=== PATIENT | female | born 1955 | race Caucasian/White ===

== ENCOUNTER 2020-02-12 16:25 | Outpatient (CLI) | payer OTHER, SELFPAY ==
--- NOTE | ~2020-02-12 | US_ITS ---
EXAMINATION: US renal BI DATE: 02/12/2020 17:07 INDICATION: Recurrent urinary tract infection. TECHNIQUE: Multiple ultrasound grayscale images of the kidneys were obtained. COMPARISON: CT abdomen and pelvis 01/28/2019 FINDINGS: The right kidney measures 9.2 x 4.4 x 4.1 cm. The left kidney measures 9.7 x 3.7 x 4.9 cm. The kidney s demonstrate normal parenchymal echogenicity. There is no hydronephrosis. The bladder is normal. IMPRESSION: 1. Normal kidneys. No hydronephrosis. Reviewed, dictated and finalized at location A.
== END 2020-02-12 16:26 | disposition home or self-care (01) ==
LOC: ANHIMG 16:30
PROVIDERS: PCP Nurse Practitioner; Visit Provider Nurse Practitioner
DX: R39.9 Unspecified symptoms and signs involving the genitourinary system (principal)
CPT/HCPCS: 76775

== ENCOUNTER 2021-04-01 17:57 | Emergency (ER) | payer MEDICARE, MEDICAID, SELFPAY ==
[2021-04-01 18:19] VITALS: BP 129/85; RESP 16; TEMP 37; O2SAT 99
--- NOTE | 2021-04-01 18:24 | ED.EYEPROB ---
HPI - Eye Problem General Chief complaint: Eye Problems Stated complaint: eye redness Time Seen by Provider: 04/01/21 18:31 Source: patient and RN notes reviewed Mode of arrival: ambulatory Limitations: no limitations History of Present Illness HPI Narrative: 66-year-old female with history of hypertension presents with concern for bilateral itchy, watery eyes. Reports symptoms started with an itchy rash around her eyelids and ears 1 week ago that she just finished steroiReports she started having eye irritation. She reports she has been taking Benadryl and Claritin. She denies cough, shortness of breath, fever, vision changes, purulent drainage, eye pain. MD chief complaint: eye redness and foreign body Related Data Home Medications Medication Instructions Recorded Confirmed amlodipine 04/01/21 baclofen mg 04/01/21 buspirone mg 04/01/21 desvenlafaxine succinate mg PO 04/01/21 desvenlafaxine succinate mg PO 04/01/21 diazepam 04/01/21 fluticasone propionate INTRANASAL 04/01/21 hydrochlorothiazide 04/01/21 omeprazole 04/01/21 propranolol 04/01/21 quetiapine 04/01/21 sucralfate [Carafate] 04/01/21 Allergies Allergy/AdvReac Type Severity Reaction Status Date / Time sertraline Allergy Mild nausea Verified 03/13/19 19:52 levofloxacin Allergy Unknown Other Verified 04/01/21 18:20 Penicillins Allergy Unknown Hives Verified 04/01/21 18:20 1 METAL Allergy Unknown Rash Uncoded 04/01/21 18:20 Wasp Allergy Unknown Swelling Uncoded 04/01/21 18:20 Review of Systems Review of Systems: CONSTITUTIONAL: Denies malaise, chills, sweats, or fever. EYES: Denies visual changes. Reports bilateral redness, irritation, watery discharge. ENT: Reports rhinorrhea. Denies congestion, sinus pain, otalgia or sore throat. CARDIOVASCULAR: Denies chest pain, palpitations, or edema. RESPIRATORY: Denies cough or dyspnea. SKIN: Reports resolving rash around the eyes and ears All systems reviewed & are unremarkable except as noted in HPI and below PMFSH Family History Family History (Updated 05/06/16 @ 12:54 by DOCTOR UNKNOWN) Sibling Family history of mental disorder Hypertension Father Depression Hypertension Family history of emphysema Mother Hypertension Grandparent Family history of gastrointestinal disorder Other Diabetes mellitus Family history of alcoholism Family history of arthritis Family history of lung disease Social History Social History Smoking status: Smoker, status unknown Alcohol intake: never Comments At time of signature, agree with nursing past medical, surgical, social and family history. There is no relevant family history pertinent to the presenting complaint Exam Narrative: GENERAL: Well-appearing, well-nourished, and in no acute distress. HEAD: Normocephalic, atraumatic. EYES: PERRLA, conjunctivae clear, and EOMI. No nystagmus. Bilateral sclera mildly injected with watery drainage noted. No sign of foreign body, injury, rash noted. ENT: Nares clear, turbinates pink, no rhinorrhea or epistaxis. Mucous membranes moist. TM pearly leyva with sharp light reflex bilaterally; no tragal tenderness. Oropharynx without erythema or lesions. Tonsils not enlarged and without exudate. NECK: Supple. CHEST: No respiratory distress. Speaks in full sentences. HEART: Regular rate and rhythm. SKIN: Warm, dry, no visible rash. NEURO: Alert and oriented x3. PSYCH: Normal mood and affect Course Course Emergency Course: Patient is aware of diagnosis, understands and agrees to treatment plan. Anticipatory guidance given. Patient agrees to follow-up as directed and is aware of reasons to seek care at the emergency department. Portions of this record may have been created with voice recognition software Vital Signs Vital signs: Vital Signs Temperature 98.6 F 04/01/21 18:19 Respiratory Rate 16 04/01/21 18:19 Blood Pressure 129/85 04/01/21 18:19 Pulse Oximetry 99 04/01/21
== END 2021-04-01 18:48 | disposition home or self-care (01) ==
PROVIDERS: Emergency Provider Nurse Practitioner
DX: H10.13 Acute atopic conjunctivitis, bilateral (principal); I10 Essential (primary) hypertension
CPT/HCPCS: 99213; G0463

== ENCOUNTER 2022-11-22 11:56 | Inpatient (IN) | payer MEDICARE, MEDICAID, SELFPAY ==
[2022-11-22] VITALS (24 sets, daily range): BP systolic 116–152; BP diastolic 70–98; PULSE 75–119; RESP 15–26; TEMP 35.9–36.3; O2SAT 96–100; BMI 24.5
--- NOTE | ~2022-11-22 | CT_ITS ---
EXAMINATION: CT brain wo con DATE: 11/22/2022 14:33 INDICATION: Stroke. Headache. TECHNIQUE: Computed tomography (CT) of the head was performed without intravenous contrast. The mA wa s adjusted according to patient size. Iterative reconstruction technique was employed. The dose-lengt h product was 908.00 mGy-cm. COMPARISON: Head CT 01/28/2019 FINDINGS: There are scattered areas of low attenuation in the cerebral white matter. There is no intr acranial hemorrhage, acute infarction, or abnormal intracranial mass lesion. The ventricles are karlene l in size. There is mild mucosal thickening in the paranasal sinuses. The mastoid air cells are karlene l. The orbits are normal. IMPRESSION: 1. Stable mild nonspecific cerebral white matter disease, which likely represents chronic small vesse l ischemic disease. Reviewed, dictated and finalized at location A. IMPRESSION: 1. Stable mild nonspecific cerebral white matter disease, which likely represen ts chronic small vessel ischemic disease.
--- NOTE | ~2022-11-22 | XR_ITS ---
EXAMINATION: XR abdomen obstructive series DATE: 11/23/2022 06:18 INDICATION: Adynamic ileus. TECHNIQUE: Upright and supine views of the abdomen on 4 radiographs were obtained. COMPARISON: CT abdomen and pelvis 11/22/2022 FINDINGS: There are no dilated loops of small or large bowel. There is a small volume of stool in the colon. No free intraperitoneal gas. IMPRESSION: 1. Nonobstructive bowel gas pattern. Reviewed, dictated and finalized at location A.
--- NOTE | ~2022-11-22 | CT_ITS ---
EXAMINATION: CT abdomen pelvis wo con DATE: 11/22/2022 19:57 INDICATION: abdominal pain TECHNIQUE: Computed tomography (CT) of the abdomen and pelvis was performed without intravenous contr ast. Automated exposure control and iterative reconstruction technique were employed. The dose-length product was 321.45 mGy-cm. COMPARISON: None. FINDINGS: Lower thorax: Coronary artery calcifications. Small pericardial effusion. Moderate hiatal hernia. Liver: Normal. Biliary/Gallbladder: Gallbladder is normal. No bile duct dilation. Pancreas: No mass or duct dilation. Spleen: Normal. Adrenals:No mass. Kidneys: Punctate nonobstructing right midpole calcification. No suspicious mass, obstructing calcifi cation, or hydronephrosis. GI tract: Several loops of mildly dilated large and small bowel in the left upper abdomen, no transit ion point. Predominantly fluid-filled large bowel. Normal appendix. Mesentery/Peritoneum: No ascites, mass, or free air. Retroperitoneum: No mass. Atherosclerotic abdominal aortic and/or arterial calcifications. Pelvis: Pelvic organs are within normal limits. Soft Tissues: Soft tissues and body wall unremarkable. Bones: No acute osseous finding. IMPRESSION: Small pericardial effusion. Several loops of dilated large and small bowel in the left abdomen, may r epresent ileus or early/partial obstruction. Fluid-filled colon as can be seen with diarrheal illness . Reviewed, dictated and finalized at location K. IMPRESSION: Small pericardial effusion. Several loops of dilated large and small bowel in t he left abdomen, may represent ileus or early/partial obstruction. Fluid-filled colon as can be seen with diarrheal illness.
--- NOTE | 2022-11-22 12:38 | ED.GENADULT ---
HPI - General Adult General Chief complaint: Unspecified Stated complaint: headache Time Seen by Provider: 11/22/22 12:38 History of Present Illness HPI narrative: 67 yo female with a pmh of htn on (4 antihypertensives) and anxiety presents with multiple complaints. Pt states she has been sick for the past couple days. Symptoms include fatigue, anxiety, N/V and dull LEGER. This am, symptoms persisted and she also has trouble speaking . THis may be a slurring but pt states it feels like her mouth doesnt want to work. Objectively, I do not detect any slurring. No focal symptoms other than above. Related Data Home Medications Medication Instructions Recorded Confirmed amlodipine 5 mg tablet 5 mg PO DAILY 04/01/21 11/22/22 baclofen 20 mg tablet 30 mg PO TID 04/01/21 11/22/22 buspirone 10 mg tablet 20 mg PO TID 04/01/21 11/22/22 fluticasone propionate 50 1 spray intranasal DAILY PRN 04/01/21 11/22/22 mcg/actuation nasal Congestion spray,suspension hydrochlorothiazide 12.5 mg tablet 12.5 mg PO DAILY 04/01/21 11/22/22 propranolol 20 mg tablet 20 mg PO BID 04/01/21 11/22/22 cetirizine 10 mg tablet 10 mg PO DAILY 11/22/22 11/22/22 desvenlafaxine succinate 50 mg 50 mg PO DAILY 11/22/22 11/22/22 tablet,extended release 24 hr gabapentin 100 mg capsule 100 mg PO HS 11/22/22 11/22/22 hydroxyzine HCl 25 mg tablet 25 mg PO BID PRN Itching 11/22/22 11/22/22 melatonin 10 mg tablet 10 mg PO HS 11/22/22 11/22/22 quetiapine 300 mg tablet,extended 300 mg PO QPM 11/22/22 11/22/22 release 24 hr Allergies Allergy/AdvReac Type Severity Reaction Status Date / Time sertraline Allergy Mild nausea Verified 03/13/19 19:52 levofloxacin Allergy Unknown Other Verified 04/01/21 18:20 Penicillins Allergy Unknown Hives Verified 04/01/21 18:20 1 METAL Allergy Unknown Rash Uncoded 04/01/21 18:20 Wasp Allergy Unknown Swelling Uncoded 04/01/21 18:20 Review of Systems Review of Systems: CONSTITUTIONAL: Denies fever, chills, or sweats. EYES: Denies visual changes, redness, or discharge. ENT: Denies rhinorrhea, congestion, sore throat, or otalgia. CARDIOVASCULAR: Denies chest pain, palpitations, or edema. RESPIRATORY: Denies cough or dyspnea. GASTROINTESTINAL: Denies abdominal pain, nausea, vomiting, or diarrhea. GENITOURINARY: Denies dysuria or hematuria. SKIN: Denies rash or itching. MUSCULOSKELETAL: Denies back pain, joint pain, or myalgia. NEUROLOGIC: Denies headache, numbness, or weakness. PSYCHIATRIC: Denies anxiety or depression. [facility] Past Medical History Medical History (Updated 11/22/22 @ 21:25 by Perla Rogers PA-C) Anxiety Chronic back pain Degenerative disc disease Gastric ulcer Hypertension Seizure (07/2021) Tobacco dependence Surgical History Surgical History (Updated 11/22/22 @ 21:20 by Perla Rogers PA-C) History of lumbar surgery History of right inguinal hernia repair Family History Family History Sibling Family history of mental disorder Hypertension Father Depression Hypertension Family history of emphysema Mother Hypertension Grandparent Family history of gastrointestinal disorder Other Diabetes mellitus Family history of alcoholism Family history of arthritis Family history of lung disease Social History Social History (Updated 11/22/22 @ 21:21 by Perla Rogers PA-C) Social History: Surrogate medical decision maker: Louise Méndez, daughter. Code status: Full code. Smoking packs per day: 0.25 Smoking cigarettes per day: 5.0 Years smoked: 54 Smoking pack-years: 13.50 Smoking status: Current every day smoker Tobacco type: cigarettes Additional smoking assessment comments: Smoked up to 2 packs of cigarettes per day. Alcohol intake: former Alcohol use details: History of alcohol abuse, no alcohol since before her 61th birthday. Substance use: current Substance use type: marijuana Other substance usa
[2022-11-22 12:55] LABS: Basophils Percent Auto 0.3 % (0.2-1.2); Eosinophils Absolute Auto 0.1 K/mm3 (0-0.3); Eosinophils Percent Auto 0.5 % (0-4.4); Hematocrit 41.3 % (37.0-47.0); Hemoglobin 14.4 g/dL (12.0-15.0); Immature Granulocyte Absolute 0.02 K/mm3 (0.00-0.031); Immature Granulocyte Percent A 0.2 % (0-0.5); Mean Corpuscular HGB Conc 34.9 g/dl (32-36); Mean Corpuscular Hemoglobin 30.8 pg (26-34); Mean Corpuscular Volume 88.4 fl (80-100); Monocytes Absolute Auto 0.8 K/mm3 (0.1-0.6); Neutrophils Absolute Auto 6.1 K/mm3 (1.3-6.7); Platelet Count Result 310 k/mm3 (150-375); Red Blood Count 4.67 M/mm3 (4.2-5.4); Red Cell Distribution Width 12.6 % (11.5-14.5); White Blood Count 9.1 K/mm3 (4.5-10.0)
[2022-11-22 12:58] LABS: Appearance Urine Clear (Clear); Bacteria Urine None Seen /hpf; Bilirubin Urine Negative (Negative); Blood Urine Negative (Negative); Color Urine Yellow (Yellow); Glucose Urine UA Negative (Negative); Ketones Urine 1+ mg/dL (Negative); Leukocyte Esterase Ur 2+ LEU/UL (Negative); Nitrate Urine Negative (Negative); Protein Urine 1+ mg/dL (Negative); Specific Grav Ur 1.014 (1.001-1.035); Squamous Epithelial Cell Urine None seen /hpf (Few); pH Urine 7.5 (5.0-9.0)
[2022-11-22 13:01] LABS: Add Urine Microscopic? YES
[2022-11-22 13:08] LABS: Alanine Aminotransferase 19 U/L (6-35); Albumin Level 4.9 g/dL (3.5-5.1); Alkaline Phosphatase 106 U/L (38-126); Anion Gap 10 mmol/L (8-16); Aspartate Amino Transferase 27 U/L (14-36); Bilirubin,Total 0.6 mg/dL (0.2-1.3); Blood Urea Nitrogen 8 mg/dL (7-17); Calcium 9.1 mg/dL (8.4-10.2); Carbon Dioxide 29 mmol/L (22-30); Chloride 89 mmol/L (98-107); Estimated CRCL calculation 63 ml/min; Estimated Glomerular Filt Rate > 60; Glucose 110 mg/dL (65-110); Lipase 81 U/L (23-300); Potassium 2.9 mmol/L (3.4-5.0); Sodium 128 mmol/L (137-145)
[2022-11-22] MEDS: POTASSIUM CHLORIDE 20 MEQ PACKET (FOR LIQUID) 40 MEQ PO (14:51)
[2022-11-22] MEDS: MAGNESIUM SULF 1 GM/D5W 100 ML 1 GM/100 ML BAG IVPB (14:52)
[2022-11-22] MEDS: POTASSIUM CHLORIDE INJ 40 MEQ in SODIUM CHLORIDE 0.9% IV 500 ML 130 MEQ IVPB (14:52)
[2022-11-22] MEDS: LORazepam INJ (*CRX) 2 MG/ML VIAL 0.5 MG IV PUSH (14:57)
[2022-11-22 15:48] LABS: SARS-CoV-2 RNA PCR Negative (Negative)
[2022-11-22] MEDS: SODIUM CHLORIDE 0.9% IV 500 ML 999 ML IV CONT (17:17)
--- NOTE | 2022-11-22 17:30 | PM.IMHP ---
H&P: HPI History of Present Illness Date/Time: 11/22/22 17:30 Chief Complaint: Headache and slurred speech. Narrative: This is a 67-year-old female smoker with hypertension, anxiety, and chronic back pain who presented to the emergency department via private vehicle from home for evaluation of headache and slurred speech. The patient provides the following history. She has not been feeling well since Monday morning when she woke up ?in a fog? and just not feeling like herself. She endorses a generalized headache, sinus congestion, nonproductive cough, nausea, diarrhea, and generalized abdominal discomfort and bloating. She has not had much to eat or drink since her symptoms started and she is feeling increasingly weak and a bit lightheaded and dizzy. At home she has been taking acetaminophen as needed and nothing else. This morning her daughter was concerned that the patient was increasingly weak today and she also noticed that the patient had slurred speech. She denies vertigo, visual changes, difficulty swallowing, facial droop, focal weakness, and paresthesias. The patient herself reported that it felt like her mouth was not working appropriately but her mouth is extremely dry and her speech seemed to improve when she drink. She is on quetiapine, baclofen, and gabapentin at home but denies that she could have taken more than prescribed. She has a history of alcohol abuse but has not drank for over 6 years. She has not had any recent falls or head trauma. No chest pain, pleuritic pain, palpitations, or sensations of racing heart. In the ED: Vital signs were stable. CBC was unremarkable. Her sodium, potassium, and chloride were all low at 128, 2.9, and 89 respectively. BUN and creatinine were normal as well as her LFTs and lipase. Head CT showed no acute findings. CT of the abdomen pelvis showed a small pericardial effusion, several loops of dilated large and small bowel in the left abdomen which may represent ileus or early/partial obstruction and a fluid-filled colon. She was hydrated with normal saline and her potassium was replaced. She is being admitted in this setting for closer monitoring and evaluation. Review of Systems Review of Systems: Twelve systems were reviewed and are negative except for as per HPI. [facility] Past Medical History Medical History (Updated 11/22/22 @ 21:25 by Perla Rogers PA-C) Anxiety Chronic back pain Degenerative disc disease Gastric ulcer Hypertension Seizure (07/2021) Tobacco dependence Surgical History Surgical History (Updated 11/22/22 @ 21:20 by Perla Rogers PA-C) History of lumbar surgery History of right inguinal hernia repair Family History Family History Sibling Family history of mental disorder Hypertension Father Depression Hypertension Family history of emphysema Mother Hypertension Grandparent Family history of gastrointestinal disorder Other Diabetes mellitus Family history of alcoholism Family history of arthritis Family history of lung disease Social History Social History (Updated 11/22/22 @ 21:21 by Perla Rogers PA-C) Social History: Surrogate medical decision maker: Louise Méndez, daughter. Code status: Full code. Smoking packs per day: 0.25 Smoking cigarettes per day: 5.0 Years smoked: 54 Smoking pack-years: 13.50 Smoking status: Current every day smoker Tobacco type: cigarettes Additional smoking assessment comments: Smoked up to 2 packs of cigarettes per day. Alcohol intake: former Alcohol use details: History of alcohol abuse, no alcohol since before her 61th birthday. Substance use: current Substance use type: marijuana Other substance usage details: edibles Last use: 11/16/2022 Lack of Transportation: YES Lack of Food: Never True Current Housing: I Have Housing Concerned About Future Housing: No Difficulty Paying Gas/Electric Bills: No D
--- NOTE | 2022-11-22 17:52 | ADMGEN ---
This patient, Lola Gandhi, was admitted to [facility] Surg Room 314-01. Patient/family oriented to hospital policies and general routines including ID bracelet, bed and alarms, visiting hours, pain management, procedures, bathroom and other care routines, personal items, smoking policy, room service/diet, and visiting hours. Information on how to activate the Rapid Response Team has been discussed. Patient/Family are encouraged to report perceived risks to care and to ask questions if they do not understand what they are told or what they should do.
[2022-11-22] MEDS: ACETAMINOPHEN 325 MG TABLET 650 MG PO (19:41)
[2022-11-22 21:52] LABS: Anion Gap 5 mmol/L (8-16); Blood Urea Nitrogen 6 mg/dL (7-17); Calcium 8.3 mg/dL (8.4-10.2); Carbon Dioxide 27 mmol/L (22-30); Chloride 95 mmol/L (98-107); Estimated CRCL calculation 73 ml/min; Estimated Glomerular Filt Rate > 60; Glucose 100 mg/dL (65-110); Potassium 4.1 mmol/L (3.4-5.0); Sodium 127 mmol/L (137-145)
[2022-11-22] MEDS: SODIUM CHLORIDE 0.9% IV 1,000 ML 75 ML IV CONT (22:14)
[2022-11-22] MEDS: GABAPENTIN 100 MG CAPSULE PO (23:18)
[2022-11-22] MEDS: PROPRANOLOL HCL 20 MG TABLET PO (23:18)
[2022-11-22] MEDS: busPIRone HCL 10 MG TABLET 20 MG PO (23:19)
[2022-11-22] MEDS: QUEtiapine FUMARATE XR 50 MG TAB.ER.24H 100 MG PO (23:19)
[2022-11-22] MEDS: MELATONIN 5 MG TABLET 10 MG PO (23:19)
[2022-11-22] MEDS: QUEtiapine FUMARATE XR 200 MG TAB.ER.24H BY MOUTH (23:19)
[2022-11-23 05:30] VITALS: BP 123/73; PULSE 69; RESP 18; TEMP 36; O2SAT 98
[2022-11-23 06:31] LABS: Hematocrit 43.6 % (37.0-47.0); Hemoglobin 14.6 g/dL (12.0-15.0); Mean Corpuscular HGB Conc 33.5 g/dl (32-36); Mean Corpuscular Hemoglobin 30.5 pg (26-34); Mean Platelet Volume 8.9 fl (7.4-10.4); Platelet Count Result 292 k/mm3 (150-375); Red Blood Count 4.79 M/mm3 (4.2-5.4); Red Cell Distribution Width 12.8 % (11.5-14.5); White Blood Count 8.6 K/mm3 (4.5-10.0)
[2022-11-23 06:37] LABS: Alanine Aminotransferase 17 U/L (6-35); Albumin Level 4.8 g/dL (3.5-5.1); Alkaline Phosphatase 97 U/L (38-126); Anion Gap 8 mmol/L (8-16); Aspartate Amino Transferase 32 U/L (14-36); Bilirubin,Total 0.8 mg/dL (0.2-1.3); Blood Urea Nitrogen 4 mg/dL (7-17); Calcium 8.9 mg/dL (8.4-10.2); Carbon Dioxide 25 mmol/L (22-30); Chloride 98 mmol/L (98-107); Estimated CRCL calculation 73 ml/min; Estimated Glomerular Filt Rate > 60; Glucose 104 mg/dL (65-110); Magnesium 2.1 mg/dL (1.6-2.3); Potassium 3.9 mmol/L (3.4-5.0); Sodium 131 mmol/L (137-145)
[2022-11-23] MEDS: ACETAMINOPHEN 325 MG TABLET 650 MG PO (06:48)
[2022-11-23] MEDS: ENOXAPARIN 40 MG/0.4 ML SYRINGE SUB-Q (07:54)
[2022-11-23] MEDS: busPIRone HCL 10 MG TABLET 20 MG PO ×3 (07:55→18:16)
[2022-11-23] MEDS: amLODIPine BESYLATE 5 MG TABLET PO (07:55)
[2022-11-23] MEDS: DESVENLAFAXINE SUCCINATE 50 MG TAB.ER.24H PO (07:55)
[2022-11-23] MEDS: LORATADINE 10 MG TABLET PO (07:56)
[2022-11-23 07:59] VITALS: PULSE 74
[2022-11-23] MEDS: PROPRANOLOL HCL 20 MG TABLET PO ×2 (07:59→20:30)
[2022-11-23 14:40] VITALS: BP 146/69; PULSE 82; RESP 16; TEMP 36.3; O2SAT 99
--- NOTE | 2022-11-23 14:59 | PM.IMPN ---
Progress Note: A&P Assessment and Plan (1) Slurred speech: Code(s): R47.81 - Slurred speech Status: Acute Assessment and Plan: The patient's daughter reports that she has had slurred speech since this morning, not necessarily evident on my exam. No focal findings were noted on neurologic exam and brain CT showed no acute findings. More over she looks very dehydrated her mouth is quite dry which may very well be the reason why she was slurring her speech. I do not think she has had a stroke but she will be monitor on telemetry overnight we will continue neurologic checks. Depending on her exam tomorrow, brain MRI may be prudent. 11/23/2022 interval history: 67-year-old female was brought to the emergency department with slurred speech however upon arrival patient is patient improved and currently patient has a fluent speech and patient states, is now for baseline, upon arrival patient appeared to be dehydrated and her buccal mucosa were dry, most likely dry mouth last patient difficulty with the speech, patient is being gently hydrated and her clinical symptoms are improving, Patient also complaints of abdominal pain CT scan of abdomen concerning for possible ileus, repeat x-ray of the abdomen today does not show any obstructive will advance patient's diet to full liquid and monitor. Will have a PT OT evaluate the patient and further recommendation to follow. (2) Gastroenteritis: Code(s): K52.9 - Noninfective gastroenteritis and colitis, unspecified Status: Acute Assessment and Plan: She most likely has a viral gastroenteritis. Continue supportive care including IV fluid rehydration and antiemetics as needed. (3) Ileus: Code(s): K56.7 - Ileus, unspecified Status: Acute Assessment and Plan: CT of the abdomen and pelvis shows several loops of dilated large and small bowel, ileus or or early/partial obstruction. There is also fluid-filled colon which is likely due to a gastroenteritis as detailed above. She still has some nausea but has not had any episodes of emesis. Trial clear liquids and monitor abdominal exam. (4) Electrolyte abnormality: Code(s): E87.8 - Other disorders of electrolyte and fluid balance, not elsewhere classified Status: Acute Assessment and Plan: Sodium, potassium, and chloride are all low. Continue normal saline overnight. Potassium was replaced and will be monitored. (5) Dehydration: Code(s): E86.0 - Dehydration Status: Acute Assessment and Plan: She has had poor oral intake the last several days with diarrhea. Continue IV fluid rehydration. (6) Hypertension: Code(s): I10 - Essential (primary) hypertension Status: Acute Assessment and Plan: Blood pressures were reviewed and they are stable. Her antihypertensives will be reviewed and resumed as appropriate. (7) Anxiety: Code(s): F41.9 - Anxiety disorder, unspecified Status: Acute Assessment and Plan: Continue desvenlafaxine and buspirone. (8) Chronic back pain: Code(s): M54.9 - Dorsalgia, unspecified; G89.29 - Other chronic pain Status: Acute Assessment and Plan: Continue baclofen and gabapentin as needed. (9) Tobacco dependence: Code(s): F17.200 - Nicotine dependence, unspecified, uncomplicated Status: Acute Assessment and Plan: Smoking cessation is encouraged. She declines the need for a nicotine patch. Subjective Date/time seen: 11/23/22 14:59 Headache and slurred speech. HPI-Narrative: This is a 67-year-old female smoker with hypertension, anxiety, and chronic back pain who presented to the emergency department via private vehicle from home for evaluation of headache and slurred speech. The patient provides the following history. She has not been feeling well since Monday morning when she woke up ?in a fog? and just not feeling like herself. She endors
--- NOTE | 2022-11-23 15:26 | PCCCNOTE ---
On 11/23/22, the student, [Caitlin Mohamud ], provided care and completed [facility] documentation on this patient. I have reviewed the student's documentation and agree with the findings.
[2022-11-23] MEDS: QUEtiapine FUMARATE XR 50 MG TAB.ER.24H 100 MG PO (18:17)
[2022-11-23] MEDS: QUEtiapine FUMARATE XR 200 MG TAB.ER.24H BY MOUTH (18:18)
[2022-11-23] MEDS: GABAPENTIN 100 MG CAPSULE PO (20:29)
[2022-11-23 20:30] VITALS: PULSE 88
[2022-11-23] MEDS: MELATONIN 5 MG TABLET 10 MG PO (20:30)
[2022-11-23 22:00] VITALS: BP 121/74; PULSE 85; RESP 14; TEMP 36.1; O2SAT 100
[2022-11-24] MEDS: ACETAMINOPHEN 325 MG TABLET 650 MG PO (02:23)
[2022-11-24 05:43] VITALS: BP 169/83; PULSE 86; RESP 14; TEMP 36.4; O2SAT 99
[2022-11-24 08:00] VITALS: PULSE 87; RESP 14; O2SAT 99
[2022-11-24] MEDS: ENOXAPARIN 40 MG/0.4 ML SYRINGE SUB-Q (08:31)
[2022-11-24] MEDS: FLUTICASONE PROPIONATE 0.05% NA SPR 16 GM BTL (*BKC) 1 SPRAY NASAL (08:31)
[2022-11-24 08:32] VITALS: PULSE 87
[2022-11-24] MEDS: PROPRANOLOL HCL 20 MG TABLET PO ×2 (08:32→21:18)
[2022-11-24] MEDS: busPIRone HCL 10 MG TABLET 20 MG PO ×3 (08:33→17:27)
[2022-11-24] MEDS: LORATADINE 10 MG TABLET PO (08:33)
[2022-11-24] MEDS: amLODIPine BESYLATE 5 MG TABLET PO (08:33)
[2022-11-24] MEDS: DESVENLAFAXINE SUCCINATE 50 MG TAB.ER.24H PO (08:34)
[2022-11-24] MEDS: hydrOXYzine HCL 25 MG TABLET PO (08:41)
[2022-11-24] MEDS: SODIUM CHLORIDE 0.9% IV 1,000 ML 75 ML IV CONT (08:42)
[2022-11-24] MEDS: MAGNES & ALUM HYD/SIMETH/DIPHENHYD/LIDOCAINE 119 ML MOUTHWASH BY MOUTH ×3 (12:53→21:17)
--- NOTE | 2022-11-24 13:58 | PCCCNOTE ---
On 11/24/22, the student, [Caitlin Mohamud ], provided care and [facility]. I have reviewed the student's documentation and agree with the findings.
[2022-11-24 14:00] VITALS: BP 154/70; PULSE 80; RESP 16; TEMP 36.3; O2SAT 99
--- NOTE | 2022-11-24 14:03 | PM.IMPN ---
Progress Note: A&P Assessment and Plan (1) Slurred speech: Code(s): R47.81 - Slurred speech Status: Acute Assessment and Plan: The patient's daughter reports that she has had slurred speech since this morning, not necessarily evident on my exam. No focal findings were noted on neurologic exam and brain CT showed no acute findings. More over she looks very dehydrated her mouth is quite dry which may very well be the reason why she was slurring her speech. I do not think she has had a stroke but she will be monitor on telemetry overnight we will continue neurologic checks. Depending on her exam tomorrow, brain MRI may be prudent. 11/24/2022 interval history: 67-year-old female was brought to the emergency department with slurred speech however upon arrival patient had improved and currently patient has a fluent speech and patient states, is now her baseline, upon arrival patient appeared to be dehydrated and her buccal mucosa were dry, most likely dry mouth, patient had difficulty with the speech, patient is being gently hydrated, also her psychiatric medication will give patient dry mouth, and her clinical symptoms are improving, Patient also complaints of abdominal pain CT scan of abdomen concerning for possible ileus, repeat x-ray of the abdomen does not show any obstructive will advance patient's diet to full liquid and monitor. Will have a PT OT evaluate the patient and further recommendation to follow. (2) Gastroenteritis: Code(s): K52.9 - Noninfective gastroenteritis and colitis, unspecified Status: Acute Assessment and Plan: She most likely has a viral gastroenteritis. Continue supportive care including IV fluid rehydration and antiemetics as needed. (3) Ileus: Code(s): K56.7 - Ileus, unspecified Status: Acute Assessment and Plan: CT of the abdomen and pelvis shows several loops of dilated large and small bowel, ileus or or early/partial obstruction. There is also fluid-filled colon which is likely due to a gastroenteritis as detailed above. She still has some nausea but has not had any episodes of emesis. Trial clear liquids and monitor abdominal exam. (4) Electrolyte abnormality: Code(s): E87.8 - Other disorders of electrolyte and fluid balance, not elsewhere classified Status: Acute Assessment and Plan: Sodium, potassium, and chloride are all low. Continue normal saline overnight. Potassium was replaced and will be monitored. (5) Dehydration: Code(s): E86.0 - Dehydration Status: Acute Assessment and Plan: She has had poor oral intake the last several days with diarrhea. Continue IV fluid rehydration. (6) Hypertension: Code(s): I10 - Essential (primary) hypertension Status: Acute Assessment and Plan: Blood pressures were reviewed and they are stable. Her antihypertensives will be reviewed and resumed as appropriate. (7) Anxiety: Code(s): F41.9 - Anxiety disorder, unspecified Status: Acute Assessment and Plan: Continue desvenlafaxine and buspirone. (8) Chronic back pain: Code(s): M54.9 - Dorsalgia, unspecified; G89.29 - Other chronic pain Status: Acute Assessment and Plan: Continue baclofen and gabapentin as needed. (9) Tobacco dependence: Code(s): F17.200 - Nicotine dependence, unspecified, uncomplicated Status: Acute Assessment and Plan: Smoking cessation is encouraged. She declines the need for a nicotine patch. Subjective Date/time seen: 11/24/22 14:03 The patient's daughter reports that she has had slurred speech since this morning, not necessarily evident on my exam. No focal findings were noted on neurologic exam and brain CT showed no acute findings. More over she looks very dehydrated her mouth is quite dry which may very well be the reason why she was slurring her speech. I do not think she has had a stroke
[2022-11-24] MEDS: chlordiazePOXIDE (*CRX) 25 MG CAPSULE PO ×2 (15:56→21:15)
[2022-11-24] MEDS: ONDANSETRON INJ 4 MG/2 ML VIAL IV PUSH (16:00)
[2022-11-24] MEDS: GABAPENTIN 100 MG CAPSULE PO (21:15)
[2022-11-24] MEDS: QUEtiapine FUMARATE XR 200 MG TAB.ER.24H BY MOUTH (21:16)
[2022-11-24] MEDS: QUEtiapine FUMARATE XR 50 MG TAB.ER.24H 100 MG PO (21:16)
[2022-11-24] MEDS: MELATONIN 5 MG TABLET 10 MG PO (21:17)
[2022-11-24 21:45] VITALS: BP 173/91; PULSE 80; RESP 14; TEMP 36.1; O2SAT 99
[2022-11-25] MEDS: MAGNES & ALUM HYD/SIMETH/DIPHENHYD/LIDOCAINE 119 ML MOUTHWASH BY MOUTH ×3 (03:55→12:30)
[2022-11-25] MEDS: chlordiazePOXIDE (*CRX) 25 MG CAPSULE PO (03:55)
[2022-11-25] MEDS: SODIUM CHLORIDE 0.9% IV 1,000 ML 75 ML IV CONT (03:56)
[2022-11-25 05:35] VITALS: BP 115/72; PULSE 71; RESP 14; TEMP 36.1; O2SAT 100
[2022-11-25] MEDS: amLODIPine BESYLATE 5 MG TABLET PO (08:55)
[2022-11-25] MEDS: ENOXAPARIN 40 MG/0.4 ML SYRINGE SUB-Q (08:55)
[2022-11-25 08:56] VITALS: PULSE 89
[2022-11-25] MEDS: PROPRANOLOL HCL 20 MG TABLET PO (08:56)
[2022-11-25] MEDS: busPIRone HCL 10 MG TABLET 20 MG PO ×2 (08:56→12:30)
[2022-11-25] MEDS: LORATADINE 10 MG TABLET PO (08:57)
[2022-11-25] MEDS: DESVENLAFAXINE SUCCINATE 50 MG TAB.ER.24H PO (08:57)
[2022-11-25] MEDS: ACETAMINOPHEN 325 MG TABLET 650 MG PO (13:24)
[2022-11-25] MEDS: ONDANSETRON INJ 4 MG/2 ML VIAL IV PUSH (13:39)
[2022-11-25 14:00] VITALS: BP 141/82; PULSE 85; RESP 14; TEMP 35.8; O2SAT 98
[2022-11-25] MEDS: hydrOXYzine pamoate 25 MG CAPSULE PO (14:19)
--- NOTE | 2022-11-25 15:30 | PM.DS ---
DS: Admitting Diagnosis Discharge Date 11/25/2022 Admitting Diagnosis Headache and slurred speech. DS: Discharge Diagnosis Discharge Diagnosis (1) Slurred speech: Code(s): R47.81 - Slurred speech Status: Acute (2) Gastroenteritis: Code(s): K52.9 - Noninfective gastroenteritis and colitis, unspecified Status: Acute (3) Ileus: Code(s): K56.7 - Ileus, unspecified Status: Acute (4) Electrolyte abnormality: Code(s): E87.8 - Other disorders of electrolyte and fluid balance, not elsewhere classified Status: Acute (5) Dehydration: Code(s): E86.0 - Dehydration Status: Acute (6) Hypertension: Code(s): I10 - Essential (primary) hypertension Status: Acute (7) Anxiety: Code(s): F41.9 - Anxiety disorder, unspecified Status: Acute (8) Chronic back pain: Code(s): M54.9 - Dorsalgia, unspecified; G89.29 - Other chronic pain Status: Acute (9) Tobacco dependence: Code(s): F17.200 - Nicotine dependence, unspecified, uncomplicated Status: Acute DS: Summary Hospital Course Reason for hospitalization: Headache and slurred speech. Narrative: This is a 67-year-old female smoker with hypertension, anxiety, and chronic back pain who presented to the emergency department via private vehicle from home for evaluation of headache and slurred speech. The patient provides the following history. She has not been feeling well since Monday morning when she woke up ?in a fog? and just not feeling like herself. She endorses a generalized headache, sinus congestion, nonproductive cough, nausea, diarrhea, and generalized abdominal discomfort and bloating. She has not had much to eat or drink since her symptoms started and she is feeling increasingly weak and a bit lightheaded and dizzy. At home she has been taking acetaminophen as needed and nothing else. This morning her daughter was concerned that the patient was increasingly weak today and she also noticed that the patient had slurred speech. She denies vertigo, visual changes, difficulty swallowing, facial droop, focal weakness, and paresthesias. The patient herself reported that it felt like her mouth was not working appropriately but her mouth is extremely dry and her speech seemed to improve when she drink. She is on quetiapine, baclofen, and gabapentin at home but denies that she could have taken more than prescribed. She has a history of alcohol abuse but has not drank for over 6 years. She has not had any recent falls or head trauma. No chest pain, pleuritic pain, palpitations, or sensations of racing heart. In the ED: Vital signs were stable. CBC was unremarkable. Her sodium, potassium, and chloride were all low at 128, 2.9, and 89 respectively. BUN and creatinine were normal as well as her LFTs and lipase. Head CT showed no acute findings. CT of the abdomen pelvis showed a small pericardial effusion, several loops of dilated large and small bowel in the left abdomen which may represent ileus or early/partial obstruction and a fluid-filled colon. She was hydrated with normal saline and her potassium was replaced. She is being admitted in this setting for closer monitoring and evaluation. Hospital Course: 67-year-old female was brought to the emergency department with slurred speech however upon arrival patient had? improved and currently patient has a fluent speech and patient states, is now her? baseline, upon arrival patient appeared to be dehydrated and her buccal? mucosa were dry,? most likely dry mouth,? patient had difficulty with the speech, patient is being gently hydrated, also her psychiatric medication will give patient dry mouth,? and her clinical symptoms are improving, Patient also complaints of abdominal pain CT scan of abdomen concerning for possible ileus, repeat x-ray of the abdomen? does not show any obstructive will advance patient's diet to full liquid and monitor.? Will have a PT OT evalua
== END 2022-11-25 16:06 | disposition home or self-care (01) | DRG 641 ==
LOC: ANHED 16:13 → ANH3MEDSUR 17:07
PROVIDERS: Physician Assistant; Admitting Provider Family Medicine; Emergency Provider Emergency Medicine; Visit Provider Family Medicine
DX: E86.0 Dehydration (principal); R47.01 Aphasia; K56.7 Ileus, unspecified; K56.600 Partial intestinal obstruction, unspecified as to cause; A08.4 Viral intestinal infection, unspecified; E87.1 Hypo-osmolality and hyponatremia; R47.81 Slurred speech; E87.6 Hypokalemia; I10 Essential (primary) hypertension; M54.9 Dorsalgia, unspecified; G89.29 Other chronic pain; F41.9 Anxiety disorder, unspecified; Z20.822 Contact with and (suspected) exposure to COVID-19; F17.210 Nicotine dependence, cigarettes, uncomplicated
CPT/HCPCS: 36415; 70450; 74019; 74176; 80048; 80053; 81001; 83690; 83735; 84443; 85025; 85027; 87086; 87088; 96365; 96366; 96368; 96375; 99285; A9270; G0378; J1650; J2060; J2405; J3475; J3480; J7030; J7040; U0003; U0005

== ENCOUNTER 2024-06-26 08:29 | Emergency (ER) | payer MEDICARE, SELFPAY ==
[2024-06-26 08:31] VITALS: BP 174/100; PULSE 94; RESP 18; TEMP 36.6; O2SAT 98
--- NOTE | 2024-06-26 09:09 | ED.URI ---
HPI - URI/Sore Throat General Chief Complaint: Upper Respiratory Infection Stated Complaint: I've got the flu or something Time Seen by Provider: 06/26/24 09:01 Source: patient Mode of arrival: ambulatory Limitations: no limitations History of Present Illness HPI Narrative: This is a 61-year-old female who presents to the ED with chief complaint of flu-like symptoms had 5 days. Patient reports that she lives with her son who was recently sick with the same symptoms. States that she has been having headache, chills, abdominal cramping and nausea. Reports she had greater than 5 episodes of diarrhea yesterday. Denies GI bleeding symptoms. Denies any known fevers. Denies sore throat, cough, back pain, chest pain, shortness of breath, leg swelling, palpitations Related Data Home Medications Medication Instructions Recorded Confirmed amlodipine 5 mg tablet 5 mg PO DAILY 04/01/21 11/22/22 baclofen 20 mg tablet 30 mg PO TID 04/01/21 11/22/22 buspirone 10 mg tablet 20 mg PO TID 04/01/21 11/22/22 fluticasone propionate 50 1 spray intranasal DAILY PRN 04/01/21 11/22/22 mcg/actuation nasal Congestion spray,suspension hydrochlorothiazide 12.5 mg tablet 12.5 mg PO DAILY 04/01/21 11/22/22 propranolol 20 mg tablet 20 mg PO BID 04/01/21 11/22/22 cetirizine 10 mg tablet 10 mg PO DAILY 11/22/22 11/22/22 desvenlafaxine succinate 50 mg 50 mg PO DAILY 11/22/22 11/22/22 tablet,extended release 24 hr gabapentin 100 mg capsule 100 mg PO HS 11/22/22 11/22/22 hydroxyzine HCl 25 mg tablet 25 mg PO BID PRN Itching 11/22/22 11/22/22 melatonin 10 mg tablet 10 mg PO HS 11/22/22 11/22/22 quetiapine 300 mg tablet,extended 300 mg PO QPM 11/22/22 11/22/22 release 24 hr quetiapine 50 mg tablet 50 mg PO BID 11/24/22 11/24/22 Allergies Allergy/AdvReac Type Severity Reaction Status Date / Time sertraline Allergy Mild nausea Verified 06/26/24 09:45 levofloxacin Allergy Unknown Other Verified 06/26/24 09:45 Penicillins Allergy Unknown Hives Verified 06/26/24 09:45 1 METAL Allergy Unknown Rash Uncoded 06/26/24 09:45 Wasp Allergy Unknown Swelling Uncoded 06/26/24 09:45 Review of Systems Review of Systems: All systems as dictated in [facility] Past Medical History Medical History (Updated 06/26/24 @ 10:27 by Benjie Ariza PA-C) Anxiety Chronic back pain Degenerative disc disease Gastric ulcer Hypertension Seizure (07/2021) Tobacco dependence Surgical History Surgical History (Updated 11/22/22 @ 21:20 by Perla Rogers PA-C) History of lumbar surgery History of right inguinal hernia repair Family History Family History Sibling Family history of mental disorder Hypertension Father Depression Hypertension Family history of emphysema Mother Hypertension Grandparent Family history of gastrointestinal disorder Other Diabetes mellitus Family history of alcoholism Family history of arthritis Family history of lung disease Social History Social History (Updated 11/22/22 @ 21:21 by Perla Rogers PA-C) Social History: Surrogate medical decision maker: Louise Méndez, daughter. Code status: Full code. Smoking packs per day: 0.25 Smoking cigarettes per day: 5.0 Years smoked: 54 Smoking pack-years: 13.50 Smoking status: Current every day smoker Tobacco type: cigarettes Additional smoking assessment comments: Smoked up to 2 packs of cigarettes per day. Alcohol intake: former Alcohol use details: History of alcohol abuse, no alcohol since before her 61th birthday. Substance use: current Substance use type: marijuana Other substance usage details: edibles Last use: 11/16/2022 Lack of Transportation: YES Lack of Food: Never True Current Housing: I Have Housing Concerned About Future Housing: No Difficulty Paying Gas/Electric Bills: No Difficulty Paying for Meds: No Currently Unemployed: No Education: Grade School Difficulty w/ Childcare or Family Care: No Additional living arrangements comments: Lives in [place]. Her son and his girlfriend live with her. Additional occupation/education comments: Retired. Spiritual care concerns: No Exam Narrative: GENERAL: Well-appearing, well-nourished, and in no acute distress. HEAD: Normocephalic, atraumatic. EYES: PERRLA and EOMI. ENT: Nares clear, no rhinorrhea or epistaxis. Mucous membranes moist. Oropharynx without tonsillar hypertrophy exudate or other lesions. NECK: Supple. No adenopathy or masses. CHEST: No respiratory distress. Clear to auscultation. No wheezes rales or rhonchi HEART: Regular rate and rhythm. No murmur heard. Normal peripheral pulses. ABDOMEN: Soft, nontender, nondistended, normal active bowel sounds. MSK: Normal range of motion. No edema. SKIN: Warm, dry, no rash. NEURO: Alert and oriented x4. No focal deficits. PSYCH: Normal mood and affect. Course Vital Signs Vital signs: Vital Signs Temperature 97.8 F 06/26/24 08:31 Pulse Rate 94 06/26/24 08:31 Respiratory Rate 18 06/26/24 08:31 Blood Pressure 174/100 H 06/26/24 08:31 Pulse Oximetry 98 06/26/24 08:31 Oxygen Delivery Room Air 06/26/24 08:31 Temperature 97.8 F 06/26/24 08:31 Pulse Rate 94 06/26/24 08:31 Respiratory Rate 18 06/26/24 08:31 Blood Pressure 174/100 H 06/26/24 08:31 Pulse Oximetry 98 06/26/24 08:31 Oxygen Delivery Room Air 06/26/24 09:43 MDM - URI/Sore Throat MDM Narrative Medical decision making narrative: This is a 61-year-old female who presents to the ED for flu-like symptoms x5 days. Vitals are showing elevated blood pressures but otherwise normal. Exam is benign overall. No abdominal tenderness Lab work unremarkable overall aside from a slightly low potassium of 3.3. 40 mEq p.o. was given here. Patient was also given her morning dose of Seroquel which she skipped for her nerves. Her blood pressure has normalized in the ED. Presentation consistent with viral syndrome. Rx for Zofran. Patient will be discharged in stable condition. Supportive measures discussed and return precautions given. Patient is understanding and agreeable with plan for discharge with PCP follow-up. Lab Data 06/26/24 09:52 06/26/24 09:52 Labs: Lab Results 06/26/24 06/26/24 Range/Units 09:05 09:52 WBC 9.8 (4.5-10.0) K/mm3 RBC 5.22 (4.2-5.4) M/mm3 Hgb 16.4 H (12.0-15.0) g/dL Hct 45.8 (37.0-47.0) % MCV 87.7 (80-100) fl MCH 31.4 (26-34) pg MCHC 35.8 (32-36) g/dl RDW 11.9 (11.5-14.5) % Plt Count 360 (150-375) k/mm3 MPV 8.9 (7.4-10.4) fl Immature Gran % (Auto) 0.3 (0-0.5) % Neut % (Auto) 70.6 (45.5-73.1) % Lymph % (Auto) 20.3 (18.3-44.2) % [place] % (Auto) 7.7 (2.6-8.5) % Eos % (Auto) 0.9 (0-4.4) % Baso % (Auto) 0.2 (0.2-1.2) % Lymph # (Auto) 1.98 (0.9-3.2) K/mm3 [place] # (Auto) 0.8 H (0.1-0.6) K/mm3 Eos # (Auto) 0.1 (0-0.3) K/mm3 Baso # (Auto) 0.0 (0.0-0.1) K/mm3 Abs Immat Gran (auto) 0.03 (0.00-0.031) K/mm3 Absolute Neuts (auto) 6.9 H (1.3-6.7) K/mm3 Absolute Nucleated RBC 0.000 (0.0-0.012) K/mm3 Nucleated RBC % 0.0 (0.0-0.2) % Sodium 129 L (137-145) mmol/L Potassium 3.3 L (3.4-5.0) mmol/L Chloride 91 L (98-107) mmol/L Carbon Dioxide 29 (22-30) mmol/L Anion Gap 9 (4-12) mmol/L BUN 7 (7-17) mg/dL Creatinine 0.80 (0.7-1.0) mg/dL Estim Creat Clear Calc 54 ml/min Estimated GFR > 60 (59 - ) Glucose 109 (65-110) mg/dL Calcium 9.7 (8.4-10.2) mg/dL Phosphorus 3.3 (2.5-4.5) mg/dL Magnesium 1.8 (1.6-2.3) mg/dL Total Bilirubin 0.6 (0.2-1.3) mg/dL AST 32 (14-36) U/L ALT 30 (6-35) U/L Alkaline Phosphatase 103 (38-126) U/L Total Protein 8.0 (6.3-8.2) g/dL Albumin 4.9 (3.5-5.1) g/dL Influenza A (RT-PCR) Negative (Negative) Influenza B (RT-PCR) Negative (Negative) RSV (RT-PCR) Negative (Negative) SARS-CoV-2 RNA (RT-PCR) Negative (Negative) Discharge Plan Discharge Clinical Impression: Acute viral syndrome Patient Disposition: Home, Self-Care Condition: Stable Instructions: Antibiotic Form Additional Instructions: Exam and workup today are reassuring. This is probably a viral syndrome which will last to another week. Please take Zofran as needed for nausea. Continue taking your regular medications as scheduled. Stay well hydrated and follow-up with PCP. If you have any new or worsening symptoms please return to the ER for further evaluation. Prescriptions: New ondansetron 4 mg tablet,disintegrating 4 mg PO Q8H PRN (Reason: nausea and vomiting) Qty: 10 0RF No Action amlodipine 5 mg tablet 5 mg PO DAILY baclofen 20 mg tablet 30 mg PO TID Hold Instructions: hold until seen by her primary care provider. buspirone 10 mg tablet 20 mg PO TID propranolol 20 mg tablet 20 mg PO BID fluticasone propionate 50 mcg/actuation spray,suspension 1 spray INTRANASAL DAILY PRN (Reason: Congestion) hydrochlorothiazide 12.5 mg tablet 12.5 mg PO DAILY Hold Instructions: hold until seen by her [facility] care provider cetirizine 10 mg Tablet 10 mg PO DAILY hydroxyzine HCl 25 mg tablet 25 mg PO BID PRN (Reason: Itching) gabapentin 100 mg capsule 100 mg PO HS quetiapine 300 mg tablet extended release 24 hr 300 mg PO QPM desvenlafaxine succinate 50 mg tablet extended release 24 hr 50 mg PO DAILY melatonin 10 mg Tablet 10 mg PO HS quetiapine 50 mg tablet 50 mg PO BID Hold Instructions: hold until seen by her [facility] care provider hydroxyzine pamoate 25 mg Capsule 25 mg PO Q6H PRN (Reason: Anxiety) Qty: 30 0RF Follow-up/Referrals: PHYSICIAN NOT ON STAFF,NONSTAFF [Non-Staff] - Time of Disposition: 10:26
[2024-06-26 09:45] LABS: Influenza A QL RT-PCR Negative (Negative); Influenza B QL RT-PCR Negative (Negative); RSV RNA, RT-PCR Negative (Negative); SARS-CoV-2 RNA PCR Negative (Negative)
[2024-06-26] MEDS: ACETAMINOPHEN 500 MG TABLET 1000 MG PO (09:46)
[2024-06-26] MEDS: ONDANSETRON HCL ODT 4 MG TABLET PO (09:46)
[2024-06-26] MEDS: IBUPROFEN 400 MG TABLET 800 MG PO (09:47)
[2024-06-26 09:59] LABS: Basophils Percent Auto 0.2 % (0.2-1.2); Eosinophils Absolute Auto 0.1 K/mm3 (0-0.3); Eosinophils Percent Auto 0.9 % (0-4.4); Hematocrit 45.8 % (37.0-47.0); Hemoglobin 16.4 g/dL (12.0-15.0); Immature Granulocyte Absolute 0.03 K/mm3 (0.00-0.031); Immature Granulocyte Percent A 0.3 % (0-0.5); Lymphocytes Absolute Auto 1.98 K/mm3 (0.9-3.2); Lymphocytes Percent Auto 20.3 % (18.3-44.2); Mean Corpuscular HGB Conc 35.8 g/dl (32-36); Mean Corpuscular Hemoglobin 31.4 pg (26-34); Mean Corpuscular Volume 87.7 fl (80-100); Mean Platelet Volume 8.9 fl (7.4-10.4); Monocytes Absolute Auto 0.8 K/mm3 (0.1-0.6); Monocytes Percent Auto 7.7 % (2.6-8.5); Neutrophils Absolute Auto 6.9 K/mm3 (1.3-6.7); Neutrophils Percent Auto 70.6 % (45.5-73.1); Platelet Count Result 360 k/mm3 (150-375); Red Blood Count 5.22 M/mm3 (4.2-5.4); Red Cell Distribution Width 11.9 % (11.5-14.5); White Blood Count 9.8 K/mm3 (4.5-10.0)
[2024-06-26 10:11] LABS: Alanine Aminotransferase 30 U/L (6-35); Albumin Level 4.9 g/dL (3.5-5.1); Alkaline Phosphatase 103 U/L (38-126); Anion Gap 9 mmol/L (4-12); Aspartate Amino Transferase 32 U/L (14-36); Bilirubin,Total 0.6 mg/dL (0.2-1.3); Blood Urea Nitrogen 7 mg/dL (7-17); Calcium 9.7 mg/dL (8.4-10.2); Carbon Dioxide 29 mmol/L (22-30); Chloride 91 mmol/L (98-107); Estimated CRCL calculation 54 ml/min; Estimated Glomerular Filt Rate > 60; Glucose 109 mg/dL (65-110); Magnesium 1.8 mg/dL (1.6-2.3); Phosphorus 3.3 mg/dL (2.5-4.5); Potassium 3.3 mmol/L (3.4-5.0); Sodium 129 mmol/L (137-145)
[2024-06-26] MEDS: QUEtiapine FUMARATE 25 MG TABLET 50 MG PO (10:38)
[2024-06-26] MEDS: POTASSIUM CHLORIDE 20 MEQ ER TABLET 40 MEQ PO (10:38)
[2024-06-26 10:45] VITALS: BP 148/94; PULSE 74; RESP 18; TEMP 36.4; O2SAT 100
== END 2024-06-26 10:46 | disposition home or self-care (01) ==
PROVIDERS: Emergency Provider Physician Assistant
DX: B34.9 Viral infection, unspecified (principal); Z20.822 Contact with and (suspected) exposure to COVID-19; I10 Essential (primary) hypertension; F41.9 Anxiety disorder, unspecified; F17.210 Nicotine dependence, cigarettes, uncomplicated; Z79.899 Other long term (current) drug therapy
CPT/HCPCS: 36415; 80053; 83735; 84100; 85025; 87637; 99283; A9270